=== PATIENT | male | born 1955 | race American Indian/Alaskan Native ===

== ENCOUNTER 2021-05-05 12:55 | Inpatient (IN) | payer MEDICARE ==
--- NOTE | 2021-05-05 17:06 | Emergency Department Report ---
ED General Adult HPI - General Chief complaint: Medical Clearance Stated complaint: BLEEDING FROM DIALYSIS ACCESS PORT Time Seen by Provider: 05/05/21 16:22 Source: EMS Mode of arrival: Stretcher Limitations: No Limitations - History of Present Illness Initial comments: 66-year-old male with a past medical history of hypertension and end-stage renal disease on dialysis presents to the hospital complaining of bleeding from right arm AV fistula. Bleeding controlled upon arrival of EMS by staff at dialysis center requested patient to come to the ER for evaluation. Patient denies any symptoms. He is oriented to person, place, but states the year is 1974. It is unclear if patient completed his dialysis prior to transport to the ED as per paperwork family court counsellor: Dr. Danielson Severity scale (0 -10): 0 - Related Data Home Medications Medication Instructions Recorded Confirmed Last Taken Aspirin [Adult Aspirin] 81 mg PO DAILY 05/05/21 05/05/21 05/05/21 09:00 Atorvastatin 40 mg PO DAILY 05/05/21 05/05/21 05/04/21 8 PM Bicalutamide 50 mg PO DAILY 05/05/21 05/05/21 Unknown Calcitriol 0.5 mg PO DAILY 05/05/21 05/05/21 Unknown Calcium Carbonate 260MG TAB 260 mg PO DAILY MDD 2 tabs 05/05/21 05/05/21 Unknown Daptomycin 500 mg IV 2XW 05/05/21 05/05/21 Unknown Ferrous Sulfate 324 MG 324 mg PO DAILY 05/05/21 05/05/21 Unknown Insulin Detemir 4 unit SQ QPCHS 05/05/21 05/05/21 05/04/21 4 Isosorbide Mononitrate 30 mg PO DAILY 05/05/21 05/05/21 Unknown Linagliptin 5 mg PO DAILY 05/05/21 05/05/21 Unknown Metoprolol 50 mg PO DAILY 05/05/21 05/05/21 Unknown Miralax 30 gm PO DAILY 05/05/21 05/05/21 Unknown Plavix 75 mg PO DAILY 05/05/21 05/05/21 Unknown Allergies Allergy/AdvReac Type Severity Reaction Status Date / Time No Known Allergies Allergy Unverified 05/05/21 16:11 ED Review of Systems ROS: Stated complaint: BLEEDING FROM DIALYSIS ACCESS PORT Other details as noted in HPI Comment: All other systems reviewed and negative ED Past Medical Hx - Past Medical History Previous Medical History?: Yes Hx Hypertension: Yes Hx Renal Disease: Yes - Surgical History Past Surgical History?: No - Social History Smoking Status: Unknown if ever smoked - Medications Home Medications: Home Medications Medication Instructions Recorded Confirmed Last Taken Type Aspirin [Adult Aspirin] 81 mg PO DAILY 05/05/21 05/05/21 05/05/21 09:00 History Atorvastatin 40 mg PO DAILY 05/05/21 05/05/21 05/04/21 History 8 PM Bicalutamide 50 mg PO DAILY 05/05/21 05/05/21 Unknown History Calcitriol 0.5 mg PO DAILY 05/05/21 05/05/21 Unknown History Calcium Carbonate 260MG TAB 260 mg PO DAILY MDD 2 tabs 05/05/21 05/05/21 Unknown History Daptomycin 500 mg IV 2XW 05/05/21 05/05/21 Unknown History Ferrous Sulfate 324 MG 324 mg PO DAILY 05/05/21 05/05/21 Unknown History Insulin Detemir 4 unit SQ QPCHS 05/05/21 05/05/21 05/04/21 History 4 Isosorbide Mononitrate 30 mg PO DAILY 05/05/21 05/05/21 Unknown History Linagliptin 5 mg PO DAILY 05/05/21 05/05/21 Unknown History Metoprolol 50 mg PO DAILY 05/05/21 05/05/21 Unknown History Miralax 30 gm PO DAILY 05/05/21 05/05/21 Unknown History Plavix 75 mg PO DAILY 05/05/21 05/05/21 Unknown History ED Physical Exam - General Limitations: No Limitations - Other Other exam information: General: No acute distress Head: Atraumatic Eyes: normal appearance ENT: Moist mucous membranes Neck: Normal appearance, no midline tenderness Chest: Clear to auscultation bilaterally CV: Regular rate and rhythm Abdomen: Soft, normal bowel sounds, nontender, nondistended, no rebound or guarding Back: Normal inspection Extremity: Right arm AV fistula positive thrill with a taped gauze dressing in place without any active bleeding Neuro: Alert O x 3, no facial asymmetry, speech clear, no gross motor sensory deficit Psych: Appropriate behavior Skin: No rash ED Course Vital Signs 05/05/21 05/05/21 05/05/21 13:09 15:28 15:31 Temperature 97.9 F Pulse Rate 82 88 Respiratory 16 13 14 Rate Blood Pressure Blood Pressure 139/65 [Right] O2 Sat by Pulse 97 Oximetry 05/05/21 05/05/21 05/05/21 15:45 15:46 15:50 Temperature 97.8 F Pulse Rate 85 82 Respiratory 13 17 Rate Blood Pressure 148/80 139/65 Blood Pressure [Right] O2 Sat by Pulse 100 98 98 Oximetry 05/05/21 05/05/21 05/05/21 16:01 16:48 17:01 Temperature 98.2 F Pulse Rate 84 88 82 Respiratory 13 17 16 Rate Blood Pressure 126/70 148/74 Blood Pressure 118/69 [Right] O2 Sat by Pulse 100 100 100 Oximetry 05/05/21 05/05/21 18:01 19:01 Temperature Pulse Rate 83 86 Respiratory 12 16 Rate Blood Pressure 132/71 115/55 Blood Pressure [Right] O2 Sat by Pulse 100 100 Oximetry - Consultations Consultation #1: 05/05/21 17:48 case d/w DR anna who recommends vascular surgery consult and eval of fistula prior to d/c 05/05/21 17:46 Vascular MD called 05/05/21 18:27 Dr Khan vascular surgeon will consult and evaluate patient during admission 05/05/21 21:35 Case d/W Dr chavez for admission ED Medical Decision Making - Lab Data Result diagrams: 05/05/21 16:51 05/05/21 16:51 Lab Results 05/05/21 05/05/21 05/05/21 Range/Units 16:51 16:51 16:51 WBC 12.8 H (4.5-11.0) K/mm3 RBC 3.33 L (3.65-5.03) M/mm3 Hgb 9.7 L (11.8-15.2) gm/dl Hct 29.2 L (35.5-45.6) % MCV 88 (84-94) fl MCH 29 (28-32) pg MCHC 33 (32-34) % RDW 15.7 H (13.2-15.2) % Plt Count 407 (140-440) K/mm3 Add Manual Diff Complete Total Counted 100 Seg Neuts % (Manual) 85.0 H (40.0-70.0) % Band Neutrophils % 0 % Lymphocytes % (Manual) 8.0 L (13.4-35.0) % Reactive Lymphs % (Man) 0 % Monocytes % (Manual) 2.0 (0.0-7.3) % Eosinophils % (Manual) 0 (0.0-4.3) % Basophils % (Manual) 3.0 H (0.0-1.8) % Metamyelocytes % 2.0 % Myelocytes % 0 % Promyelocytes % 0 % Blast Cells % 0 % Nucleated RBC % Not Reportable Seg Neutrophils # Man 10.9 H (1.8-7.7) K/mm3 Band Neutrophils # 0.0 K/mm3 Lymphocytes # (Manual) 1.0 L (1.2-5.4) K/mm3 Abs React Lymphs (Man) 0.0 K/mm3 Monocytes # (Manual) 0.3 (0.0-0.8) K/mm3 Eosinophils # (Manual) 0.0 (0.0-0.4) K/mm3 Basophils # (Manual) 0.4 H (0.0-0.1) K/mm3 Metamyelocytes # 0.3 K/mm3 Myelocytes # 0.0 K/mm3 Promyelocytes # 0.0 K/mm3 Blast Cells # 0.0 K/mm3 WBC Morphology Not Reportable Hypersegmented Neuts Not Reportable Hyposegmented Neuts Not Reportable Hypogranular Neuts Not Reportable Smudge Cells Not Reportable Toxic Granulation 1+ Toxic Vacuolation Not Reportable Dohle Bodies Not Reportable Pelger-Huet Anomaly Not Reportable Garcia Rods Not Reportable Platelet Estimate Cons Clumped Platelets Not Reportable Plt Clumps, EDTA Not Reportable Large Platelets Rare Giant Platelets Not Reportable Platelet Satelliting Not Reportable Plt Morphology Comment Not Reportable RBC Morphology Not Reportable Dimorphic RBCs Not Reportable Polychromasia Not Reportable Hypochromasia Not Reportable Poikilocytosis Not Reportable Anisocytosis 1+ Microcytosis Not Reportable Macrocytosis Not Reportable Spherocytes Not Reportable Pappenheimer Bodies Not Reportable Sickle Cells Not Reportable Target Cells Not Reportable Tear Drop Cells Not Reportable Ovalocytes Not Reportable Helmet Cells Not Reportable Hernadez-Hornick Bodies Not Reportable [place] Rings Not Reportable [place] Cells Not Reportable Bite Cells Not Reportable Crenated Cell Not Reportable Elliptocytes Not Reportable Acanthocytes (Spur) Not Reportable Rouleaux Not Reportable Hemoglobin C Crystals Not Reportable Schistocytes Not Reportable Malaria parasites Not Reportable Yoel Bodies Not Reportable Hem Pathologist Commnt No PT 14.4 (12.2-14.9) Sec. INR 1.01 (0.87-1.13) APTT 26.3 (24.2-36.6) Sec. Sodium 136 L (137-145) mmol/L Potassium 5.3 H (3.6-5.0) mmol/L Chloride 88.9 L (98-107) mmol/L Carbon Dioxide 25 (22-30) mmol/L Anion Gap 27 mmol/L BUN 44 H (9-20) mg/dL Creatinine 5.4 H (0.8-1.3) mg/dL Estimated GFR 11 ml/min BUN/Creatinine Ratio 8 % Glucose 219 H (75-100) mg/dL Calcium 9.1 (8.4-10.2) mg/dL - Medical Decision Making 66-year-old male in stage IV disease on dialysis presenting after having uncontrollable bleeding from AV fistula prior to arrival. Bleeding controlled since arrival. Case discussed with family court counsellor Dr. Paredes who advises vascular consultation. Patient will be admitted for vascular evaluation of fistula prior to discharge Critical Care Time: No Critical care attestation.: If time is entered above; I have spent that time in minutes in the direct care of this critically ill patient, excluding procedure time. ED Disposition Clinical Impression: ESRD on dialysis, Hyperkalemia, Hemorrhage of arteriovenous fistula Disposition: ADMITTED INPATIENT Is pt being admited?: Yes Condition: Stable Time of Disposition: 18:28
[2021-05-05 17:15] LABS: Hematocrit 29.2 % (35.5-45.6); Hemoglobin 9.7 gm/dl (11.8-15.2); Mean Corpuscular HGB Conc 33 % (32-34); Mean Corpuscular Volume 88 fl (84-94); Platelet Count 407 K/mm3 (140-440); Red Blood Count 3.33 M/mm3 (3.65-5.03); Red Cell Distribution Width 15.7 % (13.2-15.2)
[2021-05-05 17:26] LABS: INR 1.01 (0.87-1.13); Partial Thromboplastin Time 26.3 Sec. (24.2-36.6)
[2021-05-05 17:30] LABS: Calcium 9.1 mg/dL (8.4-10.2)
[2021-05-05 17:54] LABS: Anisocytosis 1+; Eosinophils % (Manual) 0 % (0.0-4.3); Total Cells Counted 100; Toxic Granulation 1+
[2021-05-05 17:55] LABS: Large Platelets Rare; Platelet Estimate Cons
[2021-05-05] MEDS ORDERED: HYDROmorphone 1 MG/1 ML INJ IV PRN (22:07)
[2021-05-05] MEDS ORDERED: ACETAMINOPHEN 325 MG TAB PO PRN (22:07)
[2021-05-05] MEDS ORDERED: ONDANSETRON 4 MG/2 ML INJ IV PRN (22:07)
[2021-05-05] MEDS ORDERED: ALBUTEROL 2.5 MG/3 ML NEBU IH PRN (22:07)
[2021-05-05] MEDS ORDERED: MORPHINE 2 MG/1 ML INJ IV PRN (22:07)
--- NOTE | 2021-05-05 22:14 | History and Physical Report ---
History of Present Illness Date of examination: 05/05/21 Date of admission: 05/05/21 Chief complaint: Bleeding from dialysis access port History of present illness: 66-year-old male with a past medical history of hypertension and end-stage renal disease on dialysis presents to the hospital complaining of bleeding from right arm AV fistula. Bleeding controlled upon arrival of EMS by staff at dialysis center requested patient to come to the ER for evaluation. Patient denies any symptoms. He is oriented to person, place, but states the year is 1974. It is unclear if patient completed his dialysis prior to transport to the ED as per paperwork bushel girl: Dr. Danielson In the emergency room patient is found to have potassium of 5.3, BUN of 44 creatinine 5.4 and glucose 219.case d/w DR anna who recommends vascular surgery consult and eval of fistula prior to d/c. Dr Khan vascular surgeon will consult and evaluate patient during admission. Past History Past Medical History: ESRD, hypertension, renal failure Past Surgical History: Other (Bleeding from AV fistula) Social history: other (Unknown if ever smoked) Family history: no significant family history Medications and Allergies Allergies Allergy/AdvReac Type Severity Reaction Status Date / Time No Known Allergies Allergy Unverified 05/05/21 16:11 Home Medications Medication Instructions Recorded Confirmed Last Taken Type Aspirin [Adult Aspirin] 81 mg PO DAILY 05/05/21 05/05/21 05/05/21 09:00 History Atorvastatin 40 mg PO DAILY 05/05/21 05/05/21 05/04/21 History 8 PM Bicalutamide 50 mg PO DAILY 05/05/21 05/05/21 Unknown History Calcitriol 0.5 mg PO DAILY 05/05/21 05/05/21 Unknown History Calcium Carbonate 260MG TAB 260 mg PO DAILY MDD 2 tabs 05/05/21 05/05/21 Unknown History Daptomycin 500 mg IV 2XW 05/05/21 05/05/21 Unknown History Ferrous Sulfate 324 MG 324 mg PO DAILY 05/05/21 05/05/21 Unknown History Insulin Detemir 4 unit SQ QPCHS 05/05/21 05/05/21 05/04/21 History 4 Isosorbide Mononitrate 30 mg PO DAILY 05/05/21 05/05/21 Unknown History Linagliptin 5 mg PO DAILY 05/05/21 05/05/21 Unknown History Metoprolol 50 mg PO DAILY 05/05/21 05/05/21 Unknown History Miralax 30 gm PO DAILY 05/05/21 05/05/21 Unknown History Plavix 75 mg PO DAILY 05/05/21 05/05/21 Unknown History Active Meds: Active Medications Acetaminophen (Acetaminophen 325 Mg Tab) 650 mg PO Q4H PRN PRN Reason: Pain MILD(1-3)/Fever >100.5/MALONE Albuterol (Albuterol 2.5 Mg/3 Ml Nebu) 2.5 mg IH Q3HRT PRN PRN Reason: Shortness Of Breath Albuterol/Ipratropium (Ipratropium/Albuterol Sulfate 3 Ml Ampul.Neb) 1 ampul IH Q6HRT JEANNA Famotidine (Famotidine 20 Mg Tab) 20 mg PO BID JEANNA Hydromorphone HCl (Hydromorphone 1 Mg/1 Ml Inj) 0.5 mg IV Q3H PRN PRN Reason: Pain , Severe (7-10) Morphine Sulfate (Morphine 2 Mg/1 Ml Inj) 2 mg IV Q4H PRN PRN Reason: Pain, Moderate (4-6) Ondansetron HCl (Ondansetron 4 Mg/2 Ml Inj) 4 mg IV Q8H PRN PRN Reason: Nausea And Vomiting Sodium Chloride (Sodium Chloride 0.9% 10 Ml Flush Syringe) 10 ml IV BID JEANNA Sodium Chloride (Sodium Chloride 0.9% 10 Ml Flush Syringe) 10 ml IV PRN PRN PRN Reason: LINE FLUSH Review of Systems Constitutional: weakness, lethargy, other (Bleeding from AV fistula) Exam - Constitutional Vitals: Temp Pulse Resp BP Pulse Ox 98.2 F 86 16 115/55 100 05/05/21 16:48 05/05/21 19:01 05/05/21 19:01 05/05/21 19:01 05/05/21 19:01 General appearance: Present: no acute distress, well-nourished - EENT Eyes: Present: PERRL ENT: hearing intact, clear oral mucosa - Neck Neck: Present: supple, normal ROM - Respiratory Respiratory effort: normal Respiratory: bilateral: diminished - Cardiovascular Heart Sounds: Present: S1 & S2. Absent: rub, click - Extremities Extremities: pulses symmetrical, No edema Peripheral Pulses: within normal limits - Abdominal General gastrointestinal: Present: soft, non-tender, non-distended, normal bowel sounds Male genitourinary: Present: normal - Integumentary Integumentary: Present: clear, warm, dry - Musculoskeletal Musculoskeletal: gait normal, strength equal bilaterally - Psychiatric Psychiatric: appropriate mood/affect, intact judgment & insight - Neurologic Neurologic: CNII-XII intact, moves all extremities Results - Labs CBC & Chem 7: 05/05/21 16:51 05/05/21 16:51 Labs: Laboratory Last Values WBC 12.8 K/mm3 (4.5-11.0) H 05/05/21 16:51 RBC 3.33 M/mm3 (3.65-5.03) L 05/05/21 16:51 Hgb 9.7 gm/dl (11.8-15.2) L 05/05/21 16:51 Hct 29.2 % (35.5-45.6) L 05/05/21 16:51 MCV 88 fl (84-94) 05/05/21 16:51 MCH 29 pg (28-32) 05/05/21 16:51 MCHC 33 % (32-34) 05/05/21 16:51 RDW 15.7 % (13.2-15.2) H 05/05/21 16:51 Plt Count 407 K/mm3 (140-440) 05/05/21 16:51 Add Manual Diff Complete 05/05/21 16:51 Total Counted 100 05/05/21 16:51 Seg Neuts % (Manual) 85.0 % (40.0-70.0) H 05/05/21 16:51 Band Neutrophils % 0 % 05/05/21 16:51 Lymphocytes % (Manual) 8.0 % (13.4-35.0) L 05/05/21 16:51 Reactive Lymphs % (Man) 0 % 05/05/21 16:51 Monocytes % (Manual) 2.0 % (0.0-7.3) 05/05/21 16:51 Eosinophils % (Manual) 0 % (0.0-4.3) 05/05/21 16:51 Basophils % (Manual) 3.0 % (0.0-1.8) H 05/05/21 16:51 Metamyelocytes % 2.0 % 05/05/21 16:51 Myelocytes % 0 % 05/05/21 16:51 Promyelocytes % 0 % 05/05/21 16:51 Blast Cells % 0 % 05/05/21 16:51 Nucleated RBC % Not Reportable 05/05/21 16:51 Seg Neutrophils # Man 10.9 K/mm3 (1.8-7.7) H 05/05/21 16:51 Band Neutrophils # 0.0 K/mm3 05/05/21 16:51 Lymphocytes # (Manual) 1.0 K/mm3 (1.2-5.4) L 05/05/21 16:51 Abs React Lymphs (Man) 0.0 K/mm3 05/05/21 16:51 Monocytes # (Manual) 0.3 K/mm3 (0.0-0.8) 05/05/21 16:51 Eosinophils # (Manual) 0.0 K/mm3 (0.0-0.4) 05/05/21 16:51 Basophils # (Manual) 0.4 K/mm3 (0.0-0.1) H 05/05/21 16:51 Metamyelocytes # 0.3 K/mm3 05/05/21 16:51 Myelocytes # 0.0 K/mm3 05/05/21 16:51 Promyelocytes # 0.0 K/mm3 05/05/21 16:51 Blast Cells # 0.0 K/mm3 05/05/21 16:51 WBC Morphology Not Reportable 05/05/21 16:51 Hypersegmented Neuts Not Reportable 05/05/21 16:51 Hyposegmented Neuts Not Reportable 05/05/21 16:51 Hypogranular Neuts Not Reportable 05/05/21 16:51 Smudge Cells Not Reportable 05/05/21 16:51 Toxic Granulation 1+ 05/05/21 16:51 Toxic Vacuolation Not Reportable 05/05/21 16:51 Dohle Bodies Not Reportable 05/05/21 16:51 Pelger-Huet Anomaly Not Reportable 05/05/21 16:51 Garcia Rods Not Reportable 05/05/21 16:51 Platelet Estimate Cons 05/05/21 16:51 Clumped Platelets Not Reportable 05/05/21 16:51 Plt Clumps, EDTA Not Reportable 05/05/21 16:51 Large Platelets Rare 05/05/21 16:51 Giant Platelets Not Reportable 05/05/21 16:51 Platelet Satelliting Not Reportable 05/05/21 16:51 Plt Morphology Comment Not Reportable 05/05/21 16:51 RBC Morphology Not Reportable 05/05/21 16:51 Dimorphic RBCs Not Reportable 05/05/21 16:51 Polychromasia Not Reportable 05/05/21 16:51 Hypochromasia Not Reportable 05/05/21 16:51 Poikilocytosis Not Reportable 05/05/21 16:51 Anisocytosis 1+ 05/05/21 16:51 Microcytosis Not Reportable 05/05/21 16:51 Macrocytosis Not Reportable 05/05/21 16:51 Spherocytes Not Reportable 05/05/21 16:51 Pappenheimer Bodies Not Reportable 05/05/21 16:51 Sickle Cells Not Reportable 05/05/21 16:51 Target Cells Not Reportable 05/05/21 16:51 Tear Drop Cells Not Reportable 05/05/21 16:51 Ovalocytes Not Reportable 05/05/21 16:51 Helmet Cells Not Reportable 05/05/21 16:51 Hernadez-Hunnewell Bodies Not Reportable 05/05/21 16:51 [place] Rings Not Reportable 05/05/21 16:51 [place] Cells Not Reportable 05/05/21 16:51 Bite Cells Not Reportable 05/05/21 16:51 Crenated Cell Not Reportable 05/05/21 16:51 Elliptocytes Not Reportable 05/05/21 16:51 Acanthocytes (Spur) Not Reportable 05/05/21 16:51 Rouleaux Not Reportable 05/05/21 16:51 Hemoglobin C Crystals Not Reportable 05/05/21 16:51 Schistocytes Not Reportable 05/05/21 16:51 Malaria parasites Not Reportable 05/05/21 16:51 Yoel Bodies Not Reportable 05/05/21 16:51 Hem Pathologist Commnt No 05/05/21 16:51 PT 14.4 Sec. (12.2-14.9) 05/05/21 16:51 INR 1.01 (0.87-1.13) 05/05/21 16:51 APTT 26.3 Sec. (24.2-36.6) 05/05/21 16:51 Sodium 136 mmol/L (137-145) L 05/05/21 16:51 Potassium 5.3 mmol/L (3.6-5.0) H 05/05/21 16:51 Chloride 88.9 mmol/L (98-107) L 05/05/21 16:51 Carbon Dioxide 25 mmol/L (22-30) 05/05/21 16:51 Anion Gap 27 mmol/L 05/05/21 16:51 BUN 44 mg/dL (9-20) H 05/05/21 16:51 Creatinine 5.4 mg/dL (0.8-1.3) H 05/05/21 16:51 Estimated GFR 11 ml/min 05/05/21 16:51 BUN/Creatinine Ratio 8 % 05/05/21 16:51 Glucose 219 mg/dL (75-100) H 05/05/21 16:51 Calcium 9.1 mg/dL (8.4-10.2) 05/05/21 16:51 Assessment and Plan VTE prophylaxis?: Mechanical Plan of care discussed with patient/family: Yes - Patient Problems (1) Hemorrhage of arteriovenous fistula Current Visit: Yes Status: Acute Plan to address problem: Admit the patient to the medical floor.Bleeding controlled upon arrival of EMS by staff at dialysis center requested patient to come to the ER for evaluation. Case discussed with nephrology who recommend vascular surgery evaluation vascular surgery will see the patient in the morning for further evaluation and treatment. Recheck CBC in the morning (2) ESRD on dialysis Current Visit: Yes Status: Acute Plan to address problem: Avoid nephrotoxic drug. Renally dose medication. Consulted bushel girl for hemodialysis and evaluation. Recheck BMP in the morning (3) Hypertension Current Visit: Yes Status: Acute Plan to address problem: Hydralazine 10 mg IV every 6 hours as needed. We continue the home medication (4) Hyperkalemia Current Visit: Yes Status: Acute Plan to address problem: Patient is put on neb treatment. Calcium gluconate 1 g IV x1 dose. Kayexalate 30 g p.o. x1 dose. Recheck BMP in the morning. Nephrology evaluation (5) DVT prophylaxis Current Visit: Yes Status: Acute Plan to address problem: SCD for DVT prophylaxis. Pepcid 20 mg p.o. twice daily for GI prophylaxis. P atient is a full code
[2021-05-05] MEDS ORDERED: SODIUM POLYSTYRENE 15 GM/60 ML ORAL LIQD PO ONE (22:17)
[2021-05-05] MEDS ORDERED: CALC GLUCONATE 1GM/NS 100 ML 1 GM/100 ML BAG IV ONE (22:45)
[2021-05-06] MEDS ORDERED: IPRATROPIUM/ALBUTEROL SULFATE 3 ML AMPUL.NEB IH SCH (02:00)
[2021-05-06 06:00] LABS: Hematocrit 26.9 % (35.5-45.6); Hemoglobin 8.8 gm/dl (11.8-15.2); Mean Corpuscular HGB Conc 33 % (32-34); Mean Corpuscular Volume 88 fl (84-94); Platelet Count 362 K/mm3 (140-440); Red Blood Count 3.05 M/mm3 (3.65-5.03); Red Cell Distribution Width 15.7 % (13.2-15.2)
[2021-05-06 06:20] LABS: Calcium 8.9 mg/dL (8.4-10.2)
[2021-05-06 07:11] LABS: Basophils % (Manual) 0 % (0.0-1.8); Eosinophils % (Manual) 0 % (0.0-4.3); Large Platelets Rare; Myelocytes # (Manual) 0.2 K/mm3; Platelet Estimate Consistent w Auto; RBC Morphology Normal; Total Cells Counted 100
[2021-05-06] MEDS ORDERED: FAMOTIDINE 10 MG TAB PO SCH (10:00)
[2021-05-06] MEDS ORDERED: FAMOTIDINE 20 MG TAB PO SCH (10:00)
--- NOTE | 2021-05-06 10:57 | Consultation ---
History of Present Illness - History of Present Illness Thank you for the consultation, patient's chart was reviewed, case was discussed with patient nurse, currently pending evaluation of the dialysis access for bleeding from the vascular surgery, events of this hospitalization were noted chart was reviewed, at this time following her my recommendations #End-stage kidney disease: Patient will continue to see hemodialysis treatment 3 times a week Will await vascular surgery input, there is no emergent indication for dialysis right now access issue needs to be resolved As of today patient creatinine is 1.8 with a potassium of 5.3 bicarbonate 27 hemoglobin 8.0, chest x-ray obtained yesterday shows no evidence of any acute p ulmonary process, blood pressure has been well controlled, Monitor dialysis related labs/monitor for any access issues Fluid restriction 1200 cc/day high-protein diet #Access: Admitted here with bleeding access blood pressure is stable hemoglobin relatively stable needs to be monitored however Discussed with dialysis center patient was not dialyzed yesterday and was sent to the hospitalHe is currently being evaluated by vascular once stable would like to dialyze him for at least 2 hours Case was also discussed with patient's nurse as well as assisted living administrator at [facility] #Anemia in end-stage kidney disease: To monitor and follow erythropoietin periodically goal hemoglobin between 10-11-1/2 Minimize lab draw in dialysis patients, Noted to have bleeding from the access pending vascular evaluation Bone mineral disorder and secondary hyperparathyroidism #Monitor phosphorus and PTH level, goal phosphorus less than 5-1/2 PTH under 600 #Diet and nutrition: High-protein diet, multivitamin, Nepro, #Medication management #All dialysis related questions have been addressed and discussed with patient all questions have been answered If there are any question in relation to this patient's renal care please feel free to call me at [phone] if patient is tolerating dialysis well and there is no more bleeding you can be discharged safely to return back to his home clinic at [facility], I have discussed and communicated the care plan with assisted living administrator at [facility] on a three-way call with the patient's nurse Past History Past Medical History: ESRD, hypertension, renal failure Past Surgical History: Other (Bleeding from AV fistula) Social history: other (Unknown if ever smoked) Family history: no significant family history Medications and Allergies Allergies Allergy/AdvReac Type Severity Reaction Status Date / Time No Known Allergies Allergy Verified 05/05/21 22:11 Home Medications Medication Instructions Recorded Confirmed Last Taken Type Aspirin [Adult Aspirin] 81 mg PO DAILY 05/05/21 05/05/21 05/05/21 09:00 History Atorvastatin 40 mg PO DAILY 05/05/21 05/05/21 05/04/21 History 8 PM Bicalutamide 50 mg PO DAILY 05/05/21 05/05/21 Unknown History Calcitriol 0.5 mg PO DAILY 05/05/21 05/05/21 Unknown History Calcium Carbonate 260MG TAB 260 mg PO DAILY MDD 2 tabs 05/05/21 05/05/21 Unknown History Ferrous Sulfate 324 MG 324 mg PO DAILY 05/05/21 05/05/21 Unknown History Insulin Detemir 4 unit SQ QPCHS 05/05/21 05/05/21 05/04/21 History 4 Isosorbide Mononitrate 30 mg PO DAILY 05/05/21 05/05/21 Unknown History Linagliptin 5 mg PO DAILY 05/05/21 05/05/21 Unknown History Metoprolol 50 mg PO DAILY 05/05/21 05/05/21 Unknown History Miralax 30 gm PO DAILY 05/05/21 05/05/21 Unknown History Plavix 75 mg PO DAILY 05/05/21 05/05/21 Unknown History Active Meds: Active Medications Acetaminophen (Acetaminophen 325 Mg Tab) 650 mg PO Q4H PRN PRN Reason: Pain MILD(1-3)/Fever >100.5/MALONE Albuterol (Albuterol 2.5 Mg/3 Ml Nebu) 2.5 mg IH Q3HRT PRN PRN Reason: Shortness Of Breath Famotidine (Famotidine 10 Mg Tab) 10 mg PO BID [facility] Last Admin: 05/06/21 10:22 Dose: 10 mg Hydromorphone HCl (Hydromorphone 1 Mg/1 Ml Inj) 0.5 mg IV Q3H PRN PRN Reason: Pain , Severe (7-10) Morphine Sulfate (Morphine 2 Mg/1 Ml Inj) 2 mg IV Q4H PRN PRN Reason: Pain, Moderate (4-6) Ondansetron HCl (Ondansetron 4 Mg/2 Ml Inj) 4 mg IV Q8H PRN PRN Reason: Nausea And Vomiting Sodium Chloride (Sodium Chloride 0.9% 10 Ml Flush Syringe) 10 ml IV BID [facility] Last Admin: 05/06/21 10:22 Dose: 10 ml Sodium Chloride (Sodium Chloride 0.9% 10 Ml Flush Syringe) 10 ml IV PRN PRN PRN Reason: LINE FLUSH Exam - Vital Signs Vital signs: Vital Signs Temp Pulse Resp BP Pulse Ox 97.9 F 82 16 139/65 97 05/05/21 13:09 05/05/21 13:09 05/05/21 13:09 05/05/21 13:09 05/05/21 13:09 Results - Lab Results 05/06/21 04:42 05/06/21 04:42 Most recent lab results Calcium 8.9 mg/dL (8.4-10.2) 05/06/21 04:42
--- NOTE | 2021-05-06 11:43 | Progress Note ---
Assessment and Plan Assessment and plan: #AV fistula hemorrhage #Anemia of chronic disease Hemoglobin dropped from 9.7-8.8 Patient had prolonged bleeding after undergoing hemodialysis yesterday Bleeding has since ceased Vascular surgery consulted for possible repair; pending recs Monitor hemoglobin daily and trend if <7 or patient becomes symptomatic #ESRD on hemodialysis -Access: Right upper extremity AV fistula -Outpatient schedule: TTS -HD center: Unknown -Nephrology consulted; appreciate recs. -Renally dose medications and avoid nephrotoxic drugs. Renal diet. #Hypertension - home medications: Metoprolol succinate 50 mg daily, isosorbide mononitrate 30 mg daily - current medications: - SBP goal <160 and DBP goal <90 while inpatient - continue to monitor #Hyperkalemiaresolved -5.3 -Status post medical management. -Continue to monitor with BMPs. #Moderate protein caloric malnutrition Nutrition consulted; pending recs #Advanced care planning -Disease education conducted, care plan discussed, diagnoses discussed, prognosis discussed, and patient acknowledges understanding with care plan -Time: +30 min #Discharge planning - Patient is pending vascular surgery evaluation - Case management has been made aware. - Discharge is tentatively 24-48 hours Disposition Plan: Continue medical management Total Time Spent with Patient (Minutes): 30 minutes History Interval history: No acute events overnight. Hospitalist Physical - Constitutional Vitals: Temp Pulse Resp BP Pulse Ox 98.2 F 80 18 138/76 99 05/06/21 04:33 05/06/21 04:34 05/06/21 04:34 05/06/21 04:33 05/06/21 08:49 General appearance: Present: no acute distress, cachectic, disheveled - EENT Eyes: Present: PERRL, EOM intact ENT: hearing intact, clear oral mucosa, edentulous - Neck Neck: Present: supple, normal ROM - Respiratory Respiratory effort: normal Respiratory: bilateral: CTA - Cardiovascular Rhythm: regular Heart Sounds: Present: S1 & S2 - Extremities Extremities: no ischemia, pulses intact, pulses symmetrical, No edema, normal temperature, normal color Peripheral Pulses: within normal limits - Abdominal General gastrointestinal: soft, non-tender, non-distended, normal bowel sounds - Integumentary Integumentary: Present: clear, warm, dry - Psychiatric Psychiatric: appropriate mood/affect, cooperative - Neurologic Neurologic: CNII-XII intact (Alert and oriented x2) - Allied Health Allied health notes reviewed: nursing Results - Labs CBC & Chem 7: 05/06/21 04:42 05/06/21 04:42 Labs: Laboratory Last Values WBC 9.5 K/mm3 (4.5-11.0) 05/06/21 04:42 RBC 3.05 M/mm3 (3.65-5.03) L 05/06/21 04:42 Hgb 8.8 gm/dl (11.8-15.2) L 05/06/21 04:42 Hct 26.9 % (35.5-45.6) L 05/06/21 04:42 MCV 88 fl (84-94) 05/06/21 04:42 MCH 29 pg (28-32) 05/06/21 04:42 MCHC 33 % (32-34) 05/06/21 04:42 RDW 15.7 % (13.2-15.2) H 05/06/21 04:42 Plt Count 362 K/mm3 (140-440) 05/06/21 04:42 Add Manual Diff Complete 05/06/21 04:42 Total Counted 100 05/06/21 04:42 Seg Neuts % (Manual) 79.0 % (40.0-70.0) H 05/06/21 04:42 Band Neutrophils % 0 % 05/06/21 04:42 Lymphocytes % (Manual) 16.0 % (13.4-35.0) 05/06/21 04:42 Reactive Lymphs % (Man) 0 % 05/06/21 04:42 Monocytes % (Manual) 3.0 % (0.0-7.3) 05/06/21 04:42 Eosinophils % (Manual) 0 % (0.0-4.3) 05/06/21 04:42 Basophils % (Manual) 0 % (0.0-1.8) 05/06/21 04:42 Metamyelocytes % 0 % 05/06/21 04:42 Myelocytes % 2.0 % 05/06/21 04:42 Promyelocytes % 0 % 05/06/21 04:42 Blast Cells % 0 % 05/06/21 04:42 Nucleated RBC % Not Reportable 05/06/21 04:42 Seg Neutrophils # Man 7.5 K/mm3 (1.8-7.7) 05/06/21 04:42 Band Neutrophils # 0.0 K/mm3 05/06/21 04:42 Lymphocytes # (Manual) 1.5 K/mm3 (1.2-5.4) 05/06/21 04:42 Abs React Lymphs (Man) 0.0 K/mm3 05/06/21 04:42 Monocytes # (Manual) 0.3 K/mm3 (0.0-0.8) 05/06/21 04:42 Eosinophils # (Manual) 0.0 K/mm3 (0.0-0.4) 05/06/21 04:42 Basophils # (Manual) 0.0 K/mm3 (0.0-0.1) 05/06/21 04:42 Metamyelocytes # 0.0 K/mm3 05/06/21 04:42 Myelocytes # 0.2 K/mm3 05/06/21 04:42 Promyelocytes # 0.0 K/mm3 05/06/21 04:42 Blast Cells # 0.0 K/mm3 05/06/21 04:42 WBC Morphology Not Reportable 05/06/21 04:42 Hypersegmented Neuts Not Reportable 05/06/21 04:42 Hyposegmented Neuts Not Reportable 05/06/21 04:42 Hypogranular Neuts Not Reportable 05/06/21 04:42 Smudge Cells Not Reportable 05/06/21 04:42 Toxic Granulation Not Reportable 05/06/21 04:42 Toxic Vacuolation Not Reportable 05/06/21 04:42 Dohle Bodies Not Reportable 05/06/21 04:42 Pelger-Huet Anomaly Not Reportable 05/06/21 04:42 Garcia Rods Not Reportable 05/06/21 04:42 Platelet Estimate Consistent w auto 05/06/21 04:42 Clumped Platelets Not Reportable 05/06/21 04:42 Plt Clumps, EDTA Not Reportable 05/06/21 04:42 Large Platelets Rare 05/06/21 04:42 Giant Platelets Not Reportable 05/06/21 04:42 Platelet Satelliting Not Reportable 05/06/21 04:42 Plt Morphology Comment Not Reportable 05/06/21 04:42 RBC Morphology Normal 05/06/21 04:42 Dimorphic RBCs Not Reportable 05/06/21 04:42 Polychromasia Not Reportable 05/06/21 04:42 Hypochromasia Not Reportable 05/06/21 04:42 Poikilocytosis Not Reportable 05/06/21 04:42 Anisocytosis Not Reportable 05/06/21 04:42 Microcytosis Not Reportable 05/06/21 04:42 Macrocytosis Not Reportable 05/06/21 04:42 Spherocytes Not Reportable 05/06/21 04:42 Pappenheimer Bodies Not Reportable 05/06/21 04:42 Sickle Cells Not Reportable 05/06/21 04:42 Target Cells Not Reportable 05/06/21 04:42 Tear Drop Cells Not Reportable 05/06/21 04:42 Ovalocytes Not Reportable 05/06/21 04:42 Helmet Cells Not Reportable 05/06/21 04:42 [place] Bodies Not Reportable 05/06/21 04:42 [place] Rings Not Reportable 05/06/21 04:42 [place] Cells Not Reportable 05/06/21 04:42 Bite Cells Not Reportable 05/06/21 04:42 Crenated Cell Not Reportable 05/06/21 04:42 Elliptocytes Not Reportable 05/06/21 04:42 Acanthocytes (Spur) Not Reportable 05/06/21 04:42 Rouleaux Not Reportable 05/06/21 04:42 Hemoglobin C Crystals Not Reportable 05/06/21 04:42 Schistocytes Not Reportable 05/06/21 04:42 Malaria parasites Not Reportable 05/06/21 04:42 Yoel Bodies Not Reportable 05/06/21 04:42 Hem Pathologist Commnt No 05/06/21 04:42 PT 14.4 Sec. (12.2-14.9) 05/05/21 16:51 INR 1.01 (0.87-1.13) 05/05/21 16:51 APTT 26.3 Sec. (24.2-36.6) 05/05/21 16:51 Sodium 141 mmol/L (137-145) 05/06/21 04:42 Potassium 4.3 mmol/L (3.6-5.0) 05/06/21 04:42 Chloride 94.3 mmol/L (98-107) L 05/06/21 04:42 Carbon Dioxide 25 mmol/L (22-30) 05/06/21 04:42 Anion Gap 26 mmol/L 05/06/21 04:42 BUN 50 mg/dL (9-20) H 05/06/21 04:42 Creatinine 6.2 mg/dL (0.8-1.3) H 05/06/21 04:42 Estimated GFR 11 ml/min 05/06/21 04:42 BUN/Creatinine Ratio 8 % 05/06/21 04:42 Glucose 156 mg/dL (75-100) H 05/06/21 04:42 Calcium 8.9 mg/dL (8.4-10.2) 05/06/21 04:42 Esquivel/IV: Voiding Method Condom Catheter Active Medications - Current Medications Current Medications: Generic Name Dose Route Start Last Admin Trade Name Freq PRN Reason Stop Dose Admin Acetaminophen 650 mg 05/05/21 22:07 Acetaminophen 325 Mg Tab PO Q4H PRN Pain MILD(1-3)/Fever >100.5/MALONE Albuterol 2.5 mg 05/05/21 22:07 Albuterol 2.5 Mg/3 Ml Nebu IH Q3HRT PRN Shortness Of Breath Famotidine 10 mg 05/06/21 10:00 05/06/21 10:22 Famotidine 10 Mg Tab PO 10 mg BID JEANNA Administration Hydromorphone HCl 0.5 mg 05/05/21 22:07 Hydromorphone 1 Mg/1 Ml Inj IV Q3H PRN Pain , Severe (7-10) Morphine Sulfate 2 mg 05/05/21 22:07 Morphine 2 Mg/1 Ml Inj IV Q4H PRN Pain, Moderate (4-6) Ondansetron HCl 4 mg 05/05/21 22:07 Ondansetron 4 Mg/2 Ml Inj IV Q8H PRN Nausea And Vomiting Sodium Chloride 10 ml 05/06/21 10:00 05/06/21 10:22 Sodium Chloride 0.9% 10 Ml Flush Syringe IV 10 ml BID JEANNA Administration Sodium Chloride 10 ml 05/05/21 22:07 Sodium Chloride 0.9% 10 Ml Flush Syringe IV PRN PRN LINE FLUSH
--- NOTE | 2021-05-06 12:39 | Consultation ---
History of Present Illness - Reason for Consult Consult date: 05/06/21 Complications of Dialysis Access Requesting physician: MARLA CASTRO - History of Present Illness The patient is a 66-year-old male with history of end-stage renal disease who is currently on hemodialysis through a right Marylu arteriovenous fistula. By report the patient had excessive bleeding after dialysis that required EMS being called. By the time EMS arrived to the center he was no longer bleeding however there was a report of such significant bleeding that he was transported to the e mergency department. Upon arrival at the emergency department at [facility] there was no evidence of bleeding. After 5 hours of observation he still had no bleeding however he was admitted for observation and a vascular surgery evaluation. The patient and his family member state that he has had previous episodes of bleeding however none this severe. He denies any pain at the access site. He denies any history of alarms or reports of decreased clearance. He has no additional complaints at this time. Past History Past Medical History: ESRD, hypertension, renal failure, other (Dementia) Past Surgical History: Other (Creation of right Marylu fistula) Social history: other (Lives in a fpc) Family history: no significant family history Medications and Allergies Allergies Allergy/AdvReac Type Severity Reaction Status Date / Time No Known Allergies Allergy Verified 05/05/21 22:11 Home Medications Medication Instructions Recorded Confirmed Last Taken Type Aspirin [Adult Aspirin] 81 mg PO DAILY 05/05/21 05/05/21 05/05/21 09:00 History Atorvastatin 40 mg PO DAILY 05/05/21 05/05/21 05/04/21 History 8 PM Bicalutamide 50 mg PO DAILY 05/05/21 05/05/21 Unknown History Calcitriol 0.5 mg PO DAILY 05/05/21 05/05/21 Unknown History Calcium Carbonate 260MG TAB 260 mg PO DAILY MDD 2 tabs 05/05/21 05/05/21 Unknown History Daptomycin 500 mg IV 2XW 05/05/21 05/05/21 Unknown History Ferrous Sulfate 324 MG 324 mg PO DAILY 05/05/21 05/05/21 Unknown History Insulin Detemir 4 unit SQ QPCHS 05/05/21 05/05/21 05/04/21 History 4 Isosorbide Mononitrate 30 mg PO DAILY 05/05/21 05/05/21 Unknown History Linagliptin 5 mg PO DAILY 05/05/21 05/05/21 Unknown History Metoprolol 50 mg PO DAILY 05/05/21 05/05/21 Unknown History Miralax 30 gm PO DAILY 05/05/21 05/05/21 Unknown History Plavix 75 mg PO DAILY 05/05/21 05/05/21 Unknown History Active Meds: Active Medications Acetaminophen (Acetaminophen 325 Mg Tab) 650 mg PO Q4H PRN PRN Reason: Pain MILD(1-3)/Fever >100.5/MALONE Albuterol (Albuterol 2.5 Mg/3 Ml Nebu) 2.5 mg IH Q3HRT PRN PRN Reason: Shortness Of Breath Famotidine (Famotidine 10 Mg Tab) 10 mg PO BID [facility] Last Admin: 05/06/21 10:22 Dose: 10 mg Hydromorphone HCl (Hydromorphone 1 Mg/1 Ml Inj) 0.5 mg IV Q3H PRN PRN Reason: Pain , Severe (7-10) Morphine Sulfate (Morphine 2 Mg/1 Ml Inj) 2 mg IV Q4H PRN PRN Reason: Pain, Moderate (4-6) Ondansetron HCl (Ondansetron 4 Mg/2 Ml Inj) 4 mg IV Q8H PRN PRN Reason: Nausea And Vomiting Sodium Chloride (Sodium Chloride 0.9% 10 Ml Flush Syringe) 10 ml IV BID [facility] Last Admin: 05/06/21 10:22 Dose: 10 ml Sodium Chloride (Sodium Chloride 0.9% 10 Ml Flush Syringe) 10 ml IV PRN PRN PRN Reason: LINE FLUSH Review of Systems All systems: negative Exam - Constitutional Vitals: Temp Pulse Resp BP Pulse Ox 98.2 F 80 18 138/76 99 05/06/21 04:33 05/06/21 04:34 05/06/21 04:34 05/06/21 04:33 05/06/21 08:49 General appearance: Present: no acute distress - Respiratory Respiratory effort: normal - Cardiovascular Rhythm: regular - Extremities Extremities: no ischemia, abnormal (Right arm arteriovenous fistula with palpable thrill, no pseudoaneurysm formation, no active bleeding, no pulsatility or evidence of venous outflow stenosis, entire fistula is easily compressible) Results - Labs CBC & Chem 7: 05/06/21 04:42 05/06/21 04:42 Labs: Abnormal lab results 05/05/21 05/05/21 05/06/21 Range/Units 16:51 16:51 04:42 WBC 12.8 H (4.5-11.0) K/mm3 RBC 3.33 L 3.05 L (3.65-5.03) M/mm3 Hgb 9.7 L 8.8 L (11.8-15.2) gm/dl Hct 29.2 L 26.9 L (35.5-45.6) % RDW 15.7 H 15.7 H (13.2-15.2) % Seg Neuts % (Manual) 85.0 H 79.0 H (40.0-70.0) % Lymphocytes % (Manual) 8.0 L (13.4-35.0) % Basophils % (Manual) 3.0 H (0.0-1.8) % Seg Neutrophils # Man 10.9 H (1.8-7.7) K/mm3 Lymphocytes # (Manual) 1.0 L (1.2-5.4) K/mm3 Basophils # (Manual) 0.4 H (0.0-0.1) K/mm3 Sodium 136 L (137-145) mmol/L Potassium 5.3 H (3.6-5.0) mmol/L Chloride 88.9 L (98-107) mmol/L BUN 44 H (9-20) mg/dL Creatinine 5.4 H (0.8-1.3) mg/dL Glucose 219 H (75-100) mg/dL 05/06/21 Range/Units 04:42 WBC (4.5-11.0) K/mm3 RBC (3.65-5.03) M/mm3 Hgb (11.8-15.2) gm/dl Hct (35.5-45.6) % RDW (13.2-15.2) % Seg Neuts % (Manual) (40.0-70.0) % Lymphocytes % (Manual) (13.4-35.0) % Basophils % (Manual) (0.0-1.8) % Seg Neutrophils # Man (1.8-7.7) K/mm3 Lymphocytes # (Manual) (1.2-5.4) K/mm3 Basophils # (Manual) (0.0-0.1) K/mm3 Sodium (137-145) mmol/L Potassium (3.6-5.0) mmol/L Chloride 94.3 L (98-107) mmol/L BUN 50 H (9-20) mg/dL Creatinine 6.2 H (0.8-1.3) mg/dL Glucose 156 H (75-100) mg/dL Assessment and Plan The patient is a 66-year-old male with a history of end-stage renal disease who is on hemodialysis through a right arm Marylu fistula. He had a report of blee ding at the dialysis center however this was stopped with the manual pressure and a bandage and there was no further evidence of bleeding. On physical exam there is no evidence of an outflow stenosis. He does not require vascular surgical intervention at this time. Okay to discharge home and have him follow- up with his vascular surgeon as an outpatient.
--- NOTE | 2021-05-06 13:45 | Discharge Summary ---
Providers - Providers Date of Admission: 05/05/21 22:07 Date of discharge: 05/06/21 Attending physician: SHANI CUMMINS MD 05/05/21 18:28 Consult to Physician [CONS] Urgent Comment: Consulting Provider: VINITA WRIGHT Physician Instructions: Reason For Exam: bleeding fistula 05/05/21 18:29 Consult to Physician [CONS] Urgent Comment: Consulting Provider: MORELIA FERNANDES Physician Instructions: Reason For Exam: esrd on dialysis Hospitalization Reason for admission: AV fistula hemorrhage Condition: Stable Pertinent studies: Reviewed. Procedures: None. Hospital course: Patient is a 66-year-old male past medical history of hypertension, moderate protein caloric malnutrition, and ESRD on hemodialysis (TTS) who presented from his dialysis center after prolonged bleeding from his AV fistula site. The patient's cloth boil off machine operator recommended that he be transported to the ED for further evaluation for possible fistula repair by vascular surgery. On presentation the patient was found to have a potassium of 5.3, creatinine 5.4, and glucose 219. The ED discussed with nephrology who recommended vascular surgery consult and evaluation of the fistula prior to discharge. Vascular surgery evaluated the patient and found that he does not warrant surgical intervention. The patient can be followed by vascular surgery in clinic. The patient and his family have been notified. The patient is medically clear for discharge. Disposition: 01 HOME / SELF CARE / HOMELESS Final Discharge Diagnosis (Prints w/discharge instructions): AV fistula hemorrhage, anemia of chronic disease, ESRD on hemodialysis, hypertension, hyperkalemia, moderate protein caloric malnutrition Time spent for discharge: 45 min Core Measure Documentation - Palliative Care Palliative Care/ Comfort Measures: Not Applicable - Core Measures Any of the following diagnoses?: none Exam - Constitutional Vitals: Temp Pulse Resp BP Pulse Ox 98.2 F 80 18 138/76 97 05/06/21 04:33 05/06/21 04:34 05/06/21 04:34 05/06/21 04:33 05/06/21 12:40 General appearance: Present: no acute distress, cachectic, disheveled - EENT Eyes: Present: PERRL, EOM intact ENT: hearing intact, clear oral mucosa, edentulous - Neck Neck: Present: supple, normal ROM - Respiratory Respiratory effort: normal Respiratory: bilateral: CTA - Cardiovascular Rhythm: regular Heart Sounds: Present: S1 & S2 - Extremities Extremities: no ischemia, pulses intact, pulses symmetrical, No edema, normal temperature, normal color, abnormal (Left upper extremity AV fistula) Peripheral Pulses: within normal limits - Abdominal General gastrointestinal: Present: soft, non-tender, non-distended, normal bowel sounds Male genitourinary: Present: deferred - Rectal Rectal Exam: deferred - Integumentary Integumentary: Present: clear, warm, dry - Musculoskeletal Musculoskeletal: generalized weakness - Psychiatric Psychiatric: cooperative, other - Neurologic Neurologic: CNII-XII intact, other (Alert and oriented x2) - Allied Health Allied health notes reviewed: nursing Plan Activity: no restrictions Diet: renal Additional Instructions: Patient is a 66-year-old male past medical history of hypertension, moderate protein caloric malnutrition, and ESRD on hemodialysis (TTS) who presented from his dialysis center after prolonged bleeding from his AV fistula site. The patient's cloth boil off machine operator recommended that he be transported to the ED for further evaluation for possible fistula repair by vascular surgery. On presentation the patient was found to have a potassium of 5.3, creatinine 5.4, and glucose 219. The ED discussed with nephrology who recommended vascular surgery consult and evaluation of the fistula prior to discharge. Vascular surgery evaluated the patient and found that he does not warrant surgical intervention. The patient can be followed by vascular surgery in clinic. The patient and his family have been notified. The patient is medically clear for discharge. Care Plan Goals: Patient is medically clear for discharge. Assessment: Patient is a 66-year-old male past medical history of hypertension, moderate protein caloric malnutrition, and ESRD on hemodialysis (TTS) who presented from his dialysis center after prolonged bleeding from his AV fistula site. The patient's cloth boil off machine operator recommended that he be transported to the ED for further evaluation for possible fistula repair by vascular surgery. On presentation the patient was found to have a potassium of 5.3, creatinine 5.4, and glucose 219. The ED discussed with nephrology who recommended vascular surgery consult and evaluation of the fistula prior to discharge. Vascular surgery evaluated the patient and found that he does not warrant surgical intervention. The patient can be followed by vascular surgery in clinic. The patient and his family have been notified. The patient is medically clear for discharge. Follow up with: ROSA LEON [Other] - 7 Days
[2021-05-06 18:45] LABS: Hepatitis B Surface Antigen Non-Reactive (Negative); Hepatitis C Virus Antibody Non-Reactive (NonReactive)
[2021-05-06 19:45] VITALS: BP 102/55
== END 2021-05-06 21:15 | DRG 314 ==
LOC: ED 12:55 → 3A 22:07
PROVIDERS: ADMIT Hospitalist; ATTEND Student in an Organized Health Care Education/Training Program
PROC: 5A1D70Z Performance of Urinary Filtration, Intermittent, Less than 6 Hours Per Day (ICD-10-PCS; principal; 2021-05-06)
DX: T82.838A Hemorrhage due to vascular prosthetic devices, implants and grafts, initial encounter (principal); N18.6 End stage renal disease; I12.0 Hypertensive chronic kidney disease with stage 5 chronic kidney disease or end stage renal disease; N25.81 Secondary hyperparathyroidism of renal origin; E44.0 Moderate protein-calorie malnutrition; E87.5 Hyperkalemia; Z20.822 Contact with and (suspected) exposure to COVID-19; Z99.2 Dependence on renal dialysis; Y83.8 Other surgical procedures as the cause of abnormal reaction of the patient, or of later complication, without mention of misadventure at the time of the procedure; Y92.89 Other specified places as the place of occurrence of the external cause; D63.1 Anemia in chronic kidney disease; Z68.20 Body mass index [BMI] 20.0-20.9, adult; F03.90 Unspecified dementia, unspecified severity, without behavioral disturbance, psychotic disturbance, mood disturbance, and anxiety; Z79.4 Long term (current) use of insulin; Z79.82 Long term (current) use of aspirin
CPT/HCPCS: 36415; 80048; 80074; 85007; 85025; 85610; 85730; 94640; G0378; J0610; U0003